=== PATIENT | male | born 1965 | race African-American/Black ===

== ENCOUNTER 2023-03-30 15:17 | Emergency (ER) | payer MEDICARE ==
[~2023-03-30] VITALS: Ht 190.5 cm; Wt 81.6 kg
[2023-03-30] MEDS ORDERED: TRAMADOL HCL 50 MG TAB ONE (15:37)
[2023-03-30] MEDS ORDERED: TRAMADOL HCL 50 MG TAB PO ONE (15:45)
[2023-03-30 16:13] VITALS: O2SAT 99
[2023-03-30] MEDS ORDERED: AMLODIPINE BESYL5 MG PO (16:47)
[2023-03-30] MEDS ORDERED: PEPCID20 MG PO (16:48)
[2023-03-30] MEDS ORDERED: KETOROLAC TROME10 MG PO (16:49)
[2023-03-30] MEDS ORDERED: PREDNISONE20 MG PO (16:50)
== END 2023-03-30 17:05 | disposition home or self-care (01) ==
LOC: FSED 15:28
DX: M25.511 Pain in right shoulder (principal); I10 Essential (primary) hypertension; J44.9 Chronic obstructive pulmonary disease, unspecified; B20 Human immunodeficiency virus [HIV] disease; Z95.810 Presence of automatic (implantable) cardiac defibrillator; F17.210 Nicotine dependence, cigarettes, uncomplicated
CPT/HCPCS: 71046; 99283